=== PATIENT | female | born 1990 ===

== ENCOUNTER 2020-09-14 08:29 | Emergency (ER) | payer SELFPAY ==
--- NOTE | 2020-09-14 08:52 | EDM.PDOC ---
<Alice Dennis - Last Filed: 09/14/20 08:47> ED HPI GENERAL MEDICAL PROBLEM - General Chief Complaint: ENT Problem Stated Complaint: SWOLLEN JAW Time Seen by Provider: 09/14/20 08:43 Source of Information: Reports: Patient, RN, RN Notes Reviewed History Limitations: Reports: No Limitations - History of Present Illness INITIAL COMMENTS - FREE TEXT/NARRATIVE: pt to ER with c/o dental pain/swelling. First noticed the swelling starting yesterday, but woke this am with significant increase in swelling. rates pain 10/10. significant swelling noted to right lower jaw. denies recent trauma or illness. denies fever/chill/malaise. allergy to bactrim. denies alcohol or drug use, admits to smoking. hx of dental infections, has never required medical treatment. recent diagnosis of DM2. Onset: Today Right Jaw Pain Score (Numeric/FACES): 8 - Related Data Allergies Allergy/AdvReac Type Severity Reaction Status Date / Time ketorolac [From Toradol] Allergy Other Verified 09/14/20 08:37 sulfamethoxazole Allergy Rash Verified 09/14/20 08:37 [From Bactrim] trimethoprim [From Bactrim] Allergy Rash Verified 09/14/20 08:37 Home Meds: Home Meds . [No Known Home Meds] 09/14/20 [History] Past Medical History Cardiovascular History: Reports: Hypertension Endocrine/Metabolic History: Reports: Diabetes, Type II Social & Family History - Tobacco Use Tobacco Use Status *Q: Current Every Day Tobacco User Years of Tobacco use: 12 Packs/Tins Daily: 0.4 - Caffeine Use Caffeine Use: Reports: Soda - Recreational Drug Use Recreational Drug Use: No ED ROS ENT - Review of Systems Review Of Systems: Comprehensive ROS is negative, except as noted in HPI. ED EXAM, ENT - Physical Exam Exam: See Below Exam Limited By: No Limitations General Appearance: Alert, No Apparent Distress Eye Exam: Bilateral Eye: EOMI, Normal Inspection Ears: Normal External Exam, Hearing Grossly Normal Nose: Normal Inspection Mouth/Throat: Normal Inspection, Dental Abcess (right lower buccal), Dental Pain, Dental Tenderness, Gum Swelling. No: Normal Teeth (numerous broken) Head: Atraumatic, Normocephalic Neck: Normal Inspection, Supple, Non-Tender, Full Range of Motion Respiratory/Chest: No Respiratory Distress, Lungs Clear, Normal Breath Sounds Cardiovascular: Normal Peripheral Pulses, Regular Rate, Rhythm GI/Abdominal: Normal Bowel Sounds, Soft, Non-Tender (Female) Exam: Deferred Rectal (Female) Exam: Deferred Back: Normal Inspection Extremities: Normal Inspection Neurological: Alert, Oriented, Normal Cognition, Normal Gait Psychiatric: Normal Affect, Normal Mood Skin: Warm, Dry, Intact Lymphatic: No Adenopathy Departure - Departure Time of Disposition: 08:54 Disposition: Home, Self-Care 01 Condition: Good Clinical Impression: Dental abscess - Discharge Information *PRESCRIPTION DRUG MONITORING PROGRAM REVIEWED*: No *COPY OF PRESCRIPTION DRUG MONITORING REPORT IN PATIENT SAYDA: No Instructions: Dental Abscess, Preventive Dental Care, Adult Forms: ED Department Discharge Additional Instructions: RX: Clindamycin 300 mg by mouth four times per day x 10 days; Viscous Lidocaine 2.5 mls to affected area every 2-4 hours as needed for pain. Follow-up on Wednesday with dentist. You may do warm salt water gargles, apply ice packs to jaw. You may take Tylenol as directed for pain. Sepsis Event Note (ED) - Evaluation Sepsis Screening Result: No Definite Risk <Abner Hammond - Last Filed: 09/14/20 08:58> Course - Vital Signs Last Recorded V/S: Last Vital Signs Temp 97 F 09/14/20 08:37 Pulse 84 09/14/20 08:37 Resp 16 09/14/20 08:37 BP 130/59 L 09/14/20 08:37 Pulse Ox 100 09/14/20 08:37 - Re-Assessments/Exams Free Text/Narrative Re-Assessment/Exam: 09/14/20 08:58 I personally performed or re-performed the physical examination and medical decision making. I have verified all student documentation or findings, including history, physical exam and/or medical decision making. Sepsis Event Note (ED) - Focused Exam Vital Signs: Vital Signs Temp Pulse Resp BP Pulse Ox 09/14/20 08:37 97 F 84 16 130/59 L 100
== END 2020-09-14 09:02 | disposition home or self-care (01) ==
LOC: DL.ED 08:29
DX: K04.7 Periapical abscess without sinus (principal); I10 Essential (primary) hypertension; E11.9 Type 2 diabetes mellitus without complications; F17.210 Nicotine dependence, cigarettes, uncomplicated; Z88.2 Allergy status to sulfonamides; Z88.6 Allergy status to analgesic agent
CPT/HCPCS: 99282